=== PATIENT | male | born 1990 | race African-American/Black ===

== ENCOUNTER 2018-06-12 07:58 | Emergency (ER) | payer SELFPAY ==
[~2018-06-12] VITALS: Ht 175.3 cm; Wt 72.7 kg
[~2018-06-12 07:58] MED LIST: ANUSOL-HC25 MG RE; NO HOME MEDS
[2018-06-12] MEDS ORDERED: HIV MED PO (08:14)
[2018-06-12 08:47] LABS: HEMATOCRIT 44.2 % (39.0-50.0); HEMOGLOBIN 13.6 g/dl (14.0-18.0); IMMATURE GRANULOCYTES 0.3 % (0.0-5.0); MEAN CELL VOLUME 69.9 fL CALC (80.0-100.0); MEAN CORPUSCULAR HGB 21.5 pG CALC (26.0-32.0); MEAN CORPUSCULAR HGB CONC 30.8 g/L CALC (32.0-36.0); NEUT# 3.75 thou/uL (1.82-7.42); RED BLOOD COUNT 6.32 mill/uL (4.70-6.10); RED CELL DISTRI WIDTH 15.4 % (11.5-15.5)
[2018-06-12 09:03] LABS: ALBUMIN 3.8 g/dL (3.2-5.0); ALKALINE PHOSPHATASE 87 u/l (38-126); ANION GAP 13 (6-22 (CALC)); BILIRUBIN, TOTAL 0.3 mg/dL (0.0-1.4); BUN 10 mg/dL (9-20); BUN/CREATININE RATIO 10 (12-20 (CALC)); CARBON DIOXIDE 28 mmol/l (22-30); CHLORIDE 108 mmol/l (95-108); GFR > 60 ML/MIN (>=60 (CALC)); GFR FOR AFR.AMER. > 60 ML/MIN (>=60 (CALC)); LIPASE 21 u/l (23-300); POTASSIUM 4.1 mmol/l (3.5-5.1); SGOT/AST 18 u/l (17-59); SGPT/ALT 24 u/l (21-72); SODIUM 145 mmol/l (137-146); TOTAL PROTEIN 8.4 g/dL (6.3-8.2)
[2018-06-12 10:20] LABS: URINE BILIRUBIN - DIPSTICK NEGATIVE (NEGATIVE); URINE BLOOD DIPSTICK NEGATIVE (NEGATIVE); URINE COLOR YELLOW; URINE GLUCOSE - DIPSTICK NEGATIVE (NEGATIVE); URINE KETONE NEGATIVE (NEGATIVE); URINE LEUK ESTERASE NEGATIVE (NEGATIVE); URINE NITRITE - DIPSTICK NEGATIVE (Negative); URINE PROTEIN - DIPSTICK 30 mg/dL (NEG-TRACE); URINE SPECIFIC GRAVITY >=1.030
[2018-06-12 10:22] LABS: URINE CLARITY CLEAR; URINE RBC 0-2 RBC/hpf (0-5); URINE WBC 0-2 WBC/hpf (0-5)
[2018-06-12 10:23] LABS: BARBITURATES NEGATIVE (NEGATIVE); COCAINE POSITIVE (NEGATIVE); METHADONE NEGATIVE (NEGATIVE); OXCYCODONE NEGATIVE (NEGATIVE); TETRAHYDROCANNABIONOL POSITIVE (NEGATIVE); TRICYLIC ANTIDEPRESSANTS NEGATIVE (NEGATIVE)
[2018-06-12] MEDS ORDERED: BENTYL10 MG PO (11:22)
[2018-06-12] MEDS ORDERED: DULCOLAX10 MG RE (11:22)
[2018-06-12 11:37] VITALS: BP 105/67
== END 2018-06-12 11:37 | disposition home or self-care (01) | DRG 392 ==
LOC: ED 07:58
PROVIDERS: Emergency Medicine
DX: R10.9 Unspecified abdominal pain (principal); K59.00 Constipation, unspecified; F17.210 Nicotine dependence, cigarettes, uncomplicated; Z21 Asymptomatic human immunodeficiency virus [HIV] infection status

== ENCOUNTER 2020-08-03 17:49 | Emergency (ER) | payer MEDICAID ==
[~2020-08-03] VITALS: Ht 175.3 cm; Wt 72.0 kg
[~2020-08-03 17:49] MED LIST changes: +BENTYL10 MG PO; +DULCOLAX10 MG RE; +HIV MED PO
[2020-08-03] MEDS ORDERED: AMOX/K CLAV875 M1 PO (19:24)
[2020-08-03 19:50] VITALS: BP 116/74
== END 2020-08-03 19:50 | disposition home or self-care (01) ==
LOC: ED 17:49
DX: I88.9 Nonspecific lymphadenitis, unspecified (principal); F17.200 Nicotine dependence, unspecified, uncomplicated; Z21 Asymptomatic human immunodeficiency virus [HIV] infection status

== ENCOUNTER 2020-08-30 09:40 | Observation (INO) | payer MEDICAID ==
[~2020-08-30] VITALS: Ht 177.8 cm; Wt 77.1 kg
[2020-08-30] VITALS (8 sets, daily range): BP systolic 91–124; BP diastolic 47–74
[~2020-08-30 09:40] MED LIST changes: +ACYCLOVIR400 MG PO; +AMOX/K CLAV875 M1 PO; +CLINDAMYCIN HC150 MG PO; +COBICISTAT 150 MG; +DIFLUCAN50 MG PO
--- NOTE | 2020-08-30 13:00 | NUR ---
PT ARRIVES TO FLOOR AMBULATORY A DIRECT ADMIT FROM DR RODRIGUEZ'S OFFICE FOR PERIRECTAL ABSCESS. HE IS AWAKE, ALERT, ORIENTED X 3. LUNGS CLEAR, RA. IV STARTED, IVF RUNNING. NO ACUTE PAIN. PT UNDERSTANDS SURGERY SCHEDULED FOR TODAY AND EXPECTED OUTCOME PER HAVING HAD PERIRECTAL ABSCESS IN PAST.
[2020-08-30] MEDS ORDERED: GENVOYA 150-1501 TAB PO (16:20)
[2020-08-30] MEDS ORDERED: ACYCLOVIR800 MG PO (16:21)
--- NOTE | 2020-08-30 20:03 | NUR ---
PHYSICAL ASSESMENT COMPLETE. PT CURRENTLY DENIES PAIN OR DISCOMFORT. SCHEDULED MEDICATIONS AND PRN MEDICATION ADMINISTERED, SEE E-MAR. PT DENIES ANY NEEDS AT THIS TIME. PLAN OF CARE REVIEWED, PT DENIES QUESTIONS, VERBALIZES UNDERSTANDING. ITEMS WITHIN REACH, BED LOCKED IN LOW POSITION W/ BEDRAILS UP X2. CALL SAMANIEGO WITHIN REACH, AGREES TO CALL PRN.
--- NOTE | 2020-08-30 20:30 | NUR ---
CHANGED PTS DRESSING. REMOVED OLD PACKED DRESSING. CLEANED WOUND WITH SODIUM CHLORIDE. REPACKED WOUND WITH 4X4 GAUZE WET TO DRY. PLACED ADDITIONAL 4X4 GAUZE OVER WOUND, COVERED WITH ABDOMINAL PAD AND TAPPED WITH PAPER TAPE. PT TOLERATED PROCEDURE WELL WITH NO C/O OF PAIN OR DISCOMFORT. CHANGED BED WITH FRESH LINEN AND PADS. WILL CONTINUE TO MONITOR.
--- NOTE | 2020-08-31 00:03 | NUR ---
PT LAYING IN BED WITH EYES CLOSED, APPEARS TO BE SLEEPING, APPEARS COMFORTABLE AND IN NO DISTRESS. RESPIRATIONS REGULAR AND UNLABORED. ITEMS REMAIN WITHIN REACH, CALL SAMANIEGO REMAINS WITHIN REACH. BED REMAINS LOCKED AND IN LOW POSITION WITH BEDRAILS UP X2. WILL CONTINUE TO MONITOR.
[2020-08-31 00:16] VITALS: BP 103/60
--- NOTE | 2020-08-31 04:16 | NUR ---
PT RESTING IN BED, NO S/S OF DISTRESS AT THIS TIME. SAFETY PRECAUTIONS IN PLACE. WILL CONTINUE TO MONITOR.
[2020-08-31 04:52] VITALS: BP 98/60
[2020-08-31 07:35] VITALS: BP 121/57
[2020-08-31] MEDS ORDERED: AMOXICILLIN PO (09:07)
[2020-08-31] MEDS ORDERED: CLA PO (09:07)
[2020-08-31 11:00] VITALS: BP 120/60
--- NOTE | 2020-08-31 11:46 | NUR ---
ASSESSMENT IS COMPLETED: IV SITE IS FREE FROM REDNESS OR EDEMA. HR IS REG,PULSES ARE STRONG X4, ABD IS SOFT WITH ACTIVE BS. BREATH SOUNDS ARE CLEAR BILATERALLY. DRESSING ON BUTTOCK IS CDI. CONTINEU TO OSBERVE AND MONITOR.
--- NOTE | 2020-08-31 12:00 | NUR ---
PT IS RELAXING IN BED WITH NO DISTRESS NOTED. IV SITE IS FREE FROM REDNESS OR EDEMA. CONTINUE TO OBSERVE AND MONITOR.
[2020-08-31] MEDS ORDERED: PERCOCET 5/325M1 TAB PO (12:48)
--- NOTE | 2020-08-31 14:28 | NUR ---
DISCHARGE INSTRUCTIONS GIVEN AND VERBALIZED UNDERSTANDING. SENT HOME WITH PT DRESSING MATERIAL FOR THE CHANGES BID. WITH MESH PANTIES. CONTINUE TO OBSERVE AND MONITOR. PT AMBULATED OFF THE UNIT.
--- NOTE | 2020-08-31 14:29 | NUR ---
Discharge instructions given. Patient verbalizes understanding of same. Discharged in stable condition via AMBULATED to Home with family. All belongings sent with pt.
== END 2020-08-31 14:19 | disposition home or self-care (01) ==
LOC: MS2 09:40
PROVIDERS: ADMIT Surgery; ATTEND Surgery
DX: K61.0 Anal abscess (principal); Z20.828 Contact with and (suspected) exposure to other viral communicable diseases
CPT/HCPCS: C9290; G0378; G0379

== ENCOUNTER 2021-04-05 17:01 | Emergency (ER) | payer OTHER ==
[~2021-04-05] VITALS: Ht 177.8 cm; Wt 75.9 kg
[~2021-04-05 17:01] MED LIST changes: +ACYCLOVIR800 MG PO; +AMOXICILLIN PO; +CLA PO; +GENVOYA 150-1501 TAB PO; +PERCOCET 5/325M1 TAB PO
[2021-04-05 17:58] VITALS: BP 120/82
== END 2021-04-05 17:58 | disposition home or self-care (01) ==
LOC: ED 17:01
DX: B34.9 Viral infection, unspecified (principal); Z21 Asymptomatic human immunodeficiency virus [HIV] infection status; Z20.822 Contact with and (suspected) exposure to COVID-19

== ENCOUNTER 2021-05-07 17:16 | Emergency (ER) | payer OTHER | END 2021-05-07 19:30 | disposition home or self-care (01) | DRG 951 | LOC: ED 17:16 → LWOBS 19:30 → ED 19:30 | DX: Z53.21 Procedure and treatment not carried out due to patient leaving prior to being seen by health care provider (principal) ==

== ENCOUNTER 2021-10-06 19:01 | Emergency (ER) | payer OTHER ==
[~2021-10-06] VITALS: Ht 177.8 cm; Wt 75.0 kg
[2021-10-06] MEDS ORDERED: EFFEXOR XR75 MG/CAP PO (19:29)
[2021-10-06] MEDS ORDERED: ULTRAM50 M1 PO (21:14)
[2021-10-06 22:32] VITALS: BP 128/72
== END 2021-10-06 22:50 | disposition home or self-care (01) | DRG 605 ==
LOC: ED 19:01
DX: S80.12XA Contusion of left lower leg, initial encounter (principal); V49.40XA Driver injured in collision with unspecified motor vehicles in traffic accident, initial encounter; Z21 Asymptomatic human immunodeficiency virus [HIV] infection status

== ENCOUNTER 2022-01-31 19:51 | Emergency (ER) | payer OTHER ==
[~2022-01-31] VITALS: Ht 177.8 cm; Wt 77.0 kg
[~2022-01-31 19:51] MED LIST changes: +EFFEXOR XR75 MG/CAP PO; +ULTRAM50 M1 PO
[2022-01-31] MEDS ORDERED: DOVATO 50-300 M1 TAB PO (21:30)
[2022-01-31] MEDS ORDERED: VOLTAREN - GENE75 MG PO (22:22)
[2022-01-31 22:31] VITALS: BP 122/70
== END 2022-01-31 22:35 | disposition home or self-care (01) ==
LOC: ED 19:51
DX: R20.0 Anesthesia of skin (principal)

== ENCOUNTER 2022-04-16 03:21 | Emergency (ER) | payer OTHER ==
[~2022-04-16] VITALS: Ht 177.8 cm; Wt 75.0 kg
[~2022-04-16 03:21] MED LIST changes: +DOVATO 50-300 M1 TAB PO; +VOLTAREN - GENE75 MG PO
[2022-04-16 03:35] VITALS: BP 113/66
[2022-04-16 03:45] VITALS: BP 122/66
[2022-04-16 04:00] VITALS: BP 112/69
[2022-04-16 04:33] LABS: HEMATOCRIT 37.4 % (39.0-50.0); HEMOGLOBIN 11.8 g/dl (14.0-18.0); IMMATURE GRANULOCYTES 0.2 % (0.0-5.0); MEAN CELL VOLUME 67.5 fL CALC (80.0-100.0); MEAN CORPUSCULAR HGB 21.3 pG CALC (26.0-32.0); MEAN CORPUSCULAR HGB CONC 31.6 g/dL CAL (32.0-36.0); NEUT# 2.17 thou/uL (1.82-7.42); RED BLOOD COUNT 5.54 mill/uL (4.70-6.10); RED CELL DISTRI WIDTH 14.7 % (11.5-15.5)
[2022-04-16 04:53] LABS: ALBUMIN 4.2 g/dL (3.2-5.0); ALKALINE PHOSPHATASE 89 u/l (38-126); ANION GAP 9 (6-22 (CALC)); BUN 13 mg/dL (9-20); BUN/CREATININE RATIO 11 (12-20 (CALC)); CARBON DIOXIDE 30 mmol/l (22-30); CHLORIDE 102 mmol/l (95-108); CREATININE 1.2 mg/dL (0.7-1.3); GFR FOR AFR.AMER. > 60 ML/MIN (>=60 (CALC)); GFR OTHER RACES > 60 ML/MIN (>=60 (CALC)); POTASSIUM 3.7 mmol/l (3.5-5.1); SGOT/AST 19 u/l (17-59); SODIUM 138 mmol/l (137-146); TOTAL PROTEIN 8.1 g/dL (6.3-8.2)
[2022-04-16 04:59] LABS: BILIRUBIN, TOTAL 0.5 mg/dL (0.0-1.4)
[2022-04-16] MEDS ORDERED: LORTAB 1010 MG PO (06:35)
[2022-04-16] MEDS ORDERED: KEFLEX500 MG PO (06:35)
[2022-04-16 06:39] VITALS: BP 112/69
== END 2022-04-16 06:48 | disposition home or self-care (01) ==
LOC: ED 03:21
PROVIDERS: Emergency Medicine
DX: K62.5 Hemorrhage of anus and rectum (principal); K60.3 Anal fistula; Z21 Asymptomatic human immunodeficiency virus [HIV] infection status
CPT/HCPCS: Q9967